=== PATIENT | female | born 1940 | race Caucasian/White ===

== ENCOUNTER → 2016-07-19 | Outpatient (CLI) | payer MEDICARE ==
--- NOTE | 2016-07-19 11:28 | US ---
EXAMINATION TYPE: US thyroid st tissue head/neck DATE OF EXAM: 07/19/2016 COMPARISON: July 27, 2015 CLINICAL HISTORY: E03.8 Other specified hypothyroidism. Follow up thyroid nodules GLAND SIZE: Right Lobe: 3.2 x 1.1 x 1.2 cm Overall Parenchyma: homogenous Left Lobe: 3.8 x 1.3 x 1.4 cm Overall Parenchyma: homogeneous Isthmus Thickness: 0.2 cm NODULES RIGHT: # of nodules measured on right: 2 1. 0.5 X 0.3 x 0.3 cm solid nodule at the upper pole with well-defined margins; . This nodule is w ider than tall and shows intranodular vascularity. Prior size: 0.5 x 0.3 x 0.3 cm 2. 1.3 X 0.7 x 1.0 cm hypoechoic solid nodule at the upper pole with well-defined margins; . This n odule is wider than tall and shows intranodular vascularity. Prior size: 1.4 x 0.8 x 0.9 cm LEFT: # of nodules measured on left: 2 1. 0.4 X 0.2 x 0.3 cm mixed nodule at the mid pole with well-defined margins; . This nodule is wid er than tall and shows no intranodular vascularity. Prior size: 0.3 x 0.2 x 0.2 cm 2. 0.3 X 0.2 x 0.2 cm mixed nodule at the mid pole with well-defined margins; . This nodule is wide r than tall and shows no intranodular vascularity. Prior size: 0.2 x 0.2 x 0.3 cm ISTHMUS: # of nodules measured in the isthmus: 0 Bilateral neck scanned, no evidence of lymphadenopathy. IMPRESSION: Multiple sub-centimeter nodules noted . 2 largest nodules measured bilaterally. Little to no change f rom prior exam
== END | disposition home or self-care (01) ==
LOC: RADUSWWP 09:34
PROVIDERS: ATTEND Internal Medicine Endocrinology, Diabetes & Metabolism
DX: E04.2 Nontoxic multinodular goiter (principal)
CPT/HCPCS: 76536

== ENCOUNTER → 2016-08-16 | Outpatient (CLI) | payer MEDICARE | END | disposition home or self-care (01) | LOC: LABWHC1 14:29 | PROVIDERS: ATTEND Internal Medicine Endocrinology, Diabetes & Metabolism | DX: E04.2 Nontoxic multinodular goiter (principal) | CPT/HCPCS: 36415; 84439; 84443 ==

== ENCOUNTER → 2017-03-19 | Outpatient (CLI) | payer MEDICARE ==
[2017-03-19 15:52] LABS: T4, Free (Free Thyroxine) 1.12 ng/dL (0.78-2.19)
== END | disposition home or self-care (01) ==
LOC: LABWHC1 14:39
PROVIDERS: ATTEND Internal Medicine Endocrinology, Diabetes & Metabolism
DX: E04.2 Nontoxic multinodular goiter (principal)
CPT/HCPCS: 36415; 84439; 84443

== ENCOUNTER → 2017-04-29 | Outpatient (CLI) | payer MEDICARE ==
--- NOTE | 2017-04-30 10:33 | US ---
EXAMINATION TYPE: US kidneys/renal and bladder DATE OF EXAM: 04/29/2017 COMPARISON: NONE CLINICAL HISTORY: R31.21 MICROSCOPIC HEMATURIA. Interstitial cystitis, microscopic hematuria EXAM MEASUREMENTS: Right Kidney: 9.4 x 4.0 x 4.2 cm Left Kidney: 8.9 x 4.4 x 4.3 cm Right Kidney: possible hypoechoic area mid, unable to rule out mass vs. normal parenchyma Left Kidney: no evidence of hydronephrosis Bladder: appears wnl as visualized Bilateral Jets seen: yes IMPRESSION: 1. There is a hypoechoic area within the right kidney. This is not a simple cyst. This could be abdoul l renal tissue. Underlying mass should be considered. Additional workup is recommended with contrast CT.
== END | disposition home or self-care (01) ==
LOC: RADUSWWP 15:17
PROVIDERS: ATTEND Internal Medicine
DX: Z13.21 Encounter for screening for nutritional disorder (principal)
CPT/HCPCS: 76770

== ENCOUNTER → 2017-05-20 | Outpatient (CLI) | payer MEDICARE ==
[2017-05-20 17:30] LABS: Blood Urea Nitrogen 18 mg/dL (7-17)
--- NOTE | 2017-05-21 08:36 | CT ---
EXAMINATION TYPE: CT urogram wo/w con DATE OF EXAM: 05/20/2017 COMPARISON: NONE INDICATION: Microscopic hematuria, right flank pain and history of interstitial cystitis. DLP: 791 mGycm, Automated exposure control for dose reduction was used. CONTRAST: 100 mL of Isovue M300. Study performed without Oral Contrast TECHNIQUE: Axial images were obtained from above the diaphragm to the pubic rami in the axial plane a t 5 mm thick sections. Reconstructed images are reviewed on the computer in the coronal plane. FINDINGS: Limited CT sections are obtained the lung bases. The lung bases are clear. CT ABDOMEN: Liver: Normal Spleen: Normal Pancreas: Normal Adrenal glands: The adrenal glands are normal. Gallbladder: Surgically absent Kidneys: No masses are evident. No hydronephrosis is present. Some mild right hydroureter is present proximally. This terminates within the upper abdomen. No obstructing etiology is identified. There i s a 0.6 cm cyst measuring 20 Hounsfield units on the mid posterior right kidney. Delayed images were obtained through the kidneys, which remain unremarkable. Three-D reconstructed images performed separately on the [employer] computer by the technologist are pres ented. Ureters follow a normal caliber course and contour to the urinary bladder. Urinary bladder fills norm ally without intraluminal or extramural defects. There is some minimal tortuosity of the ureters in t heir proximal portion. Aorta: Vascular calcification is within the aorta. Inferior vena cava: Normal. CT PELVIS: Loops of bowel within the abdomen and pelvis are normal. There are loops of bowel which are incom pletely distended or lack oral contrast limiting their evaluation. Appendix: Not identified. No suspicious tubular structures or inflammatory changes are evident. Urinary bladder: Normal as visualized. Contrast filled urinary bladder appears unremarkable. Genitourinary structures: Uterus is in the left hemipelvis. Adnexal regions are unremarkable. Osseous structures: Degenerative changes are within the scoliotic lumbar spine. Degenerative disc radames nges are within the lower thoracic spine as well as through the lumbar spine. Mild degenerative garcia es are at the bilateral hips. IMPRESSIONS: 1. No suspicious changes within the bilateral renal collecting system.
== END | disposition home or self-care (01) ==
LOC: RADCTMAIN 16:52
PROVIDERS: ATTEND Internal Medicine
DX: R93.41 Abnormal radiologic findings on diagnostic imaging of renal pelvis, ureter, or bladder (principal)
CPT/HCPCS: 82565; 84520; 74178; 36415; 74400; Q9967

== ENCOUNTER 2017-05-28 07:51 | Day surgery (SDC) | payer MEDICARE ==
[2017-05-23 15:24] VITALS: BMI 25.7
[~2017-05-28 07:51] MED LIST: LACTATED RINGERS 1,000 ML IV SCH
[2017-05-28 08:18] VITALS: RESP 18; TEMP 98.2
[2017-05-28] MEDS ORDERED: LACTATED RINGERS 1,000 ML IV ONE (08:18)
[2017-05-28] MEDS ORDERED: LIDOCAINE 1% 20 ML VIAL (10MG/ML) FOR IV START INTRADERMA ONE (08:18)
[2017-05-28] MEDS ORDERED: PROPOFOL 10 MG/ML 20 ML VIAL IV ONE (09:17)
[2017-05-28] MEDS ORDERED: LIDOCAINE 1% INJ 10MG/ML (20 ML MDV) ONE (09:17)
--- NOTE | 2017-05-28 09:21 | P.GSHP ---
History of Present Illness H&P Date: 05/28/17 Chief Complaint: Screen colonoscopy This is a 76-year-old female referred from Dr. Collado. Patient rents today for screening colonoscopy. She denies a significant GI complaints. Past Medical History Past Medical History: GERD/Reflux, Hypertension, Osteoarthritis (OA), Thyroid Disorder Additional Past Medical History / Comment(s): interstitial cystitis History of Any Multi-Drug Resistant Organisms: None Reported Past Surgical History: Appendectomy, Bladder Surgery, Cholecystectomy, Orthopedic Surgery, Tubal Ligation Additional Past Surgical History / Comment(s): maeve shoulder surg, knee arthroscopy, carpal tunnel sx both thumb joints replaced, bladder suspension, rectocele, pelvic floor surg, MAEVE cataract surg, left great toe spur removed, thyroid nodule biopsy, Dima Fundoplication (for GERDS) Past Anesthesia/Blood Transfusion Reactions: Motion Sickness, Postoperative Nausea & Vomiting (PONV) Smoking Status: Former smoker - Past Family History Brother(s) Family Medical History: Cancer Medications and Allergies Home Medications Medication Instructions Recorded Confirmed Type Estradiol/Norethindrone Acet 0.5 tab PO MOWEFR 04/29/14 05/23/17 History [Lopreeza 1 mg-0.5 mg Tablet] Levothyroxine Sodium [Synthroid] 50 mcg PO MOTUWETHFRSA 04/29/14 05/23/17 History Losartan Potassium [Cozaar] 100 mg PO DAILY 04/29/14 05/23/17 History Nortriptyline [Pamelor] 10 mg PO HS 04/29/14 05/23/17 History Pentosan Polysulfate Sodium 100 mg PO Q60D 04/29/14 05/23/17 History [Elmiron] Acetaminophen [Tylenol Arthritis] 650 mg PO DAILY PRN 05/23/17 05/23/17 History Ibuprofen [Motrin Ib] 200 mg PO BID PRN 05/23/17 05/23/17 History Allergies Allergy/AdvReac Type Severity Reaction Status Date / Time Iodinated Contrast- Oral and Allergy Severe Anaphylaxis Verified 05/23/17 09:48 IV Dye [Iodinated Contrast Media - IV Dye] bacitracin Allergy Rash/Hives Verified 05/23/17 09:48 [From Neosporin ([id number])] bacitracin zinc Allergy Rash/Hives Verified 05/23/17 09:48 [From Neosporin ([id number])] neomycin sulfate Allergy Rash/Hives Verified 05/23/17 09:48 [From Neosporin ([id number])] polymyxin B Allergy Rash/Hives Verified 05/23/17 09:48 [From Neosporin ([id number])] celecoxib [From Celebrex] AdvReac Confusion Verified 05/23/17 09:48 hydrocodone bitartrate AdvReac Confusion Verified 05/23/17 09:48 [From Vicodin] naproxen [From Naprosyn] AdvReac Confusion Verified 05/23/17 09:48 rofecoxib [From Vioxx] AdvReac Confusion Verified 05/23/17 09:48 Surgical - Exam Vital Signs Temp Pulse Resp BP Pulse Ox 98.2 F 77 18 132/84 98 05/28/17 08:17 05/28/17 08:17 05/28/17 08:17 05/28/17 08:17 05/28/17 08:17 - General well developed, no distress - Eyes PERRL - ENT normal pinna - Neck no masses - Respiratory normal expansion - Cardiovascular Rhythm: regular - Abdomen Abdomen: soft, non tender Assessment and Plan Assessment: We'll perform screening colonoscopy.
--- NOTE | 2017-05-28 09:44 | P.OP ---
Date of Procedure: 05/28/17 Preoperative Diagnosis: Screening colonoscopy Postoperative Diagnosis: Poor colonic prep Normal colonoscopy to right colon. Procedure(s) Performed: Colonoscopy Anesthesia: MAC Surgeon: Kan Sosa Pathology: none sent Condition: stable Disposition: PACU Description of Procedure: The patient's placed on the endoscopy table in the lateral position. She received IV sedation. Digital rectal exam performed which revealed no abnormalities. Flexible colonoscope was then placed patient anus and passed throughout the colon. The scope could not be advanced into the right colon secondary to a large amount of liquid stool. The colon prep was very poor. There was a large amount liquid stool throughout the entire colon. At this point scope withdrawn. The transverse colon appeared normal. The descending colon appeared normal. The sigmoid colon appeared normal. However due to the large amount of liquid stool the mucosa examination was performed. The scope was then brought back the rectum this appeared normal. Scope was withdrawn for patient.
[2017-05-28 10:05] VITALS: BP 144/85; PULSE 83
== END 2017-05-28 10:44 | disposition home or self-care (01) ==
LOC: ORWHC2ENDO 07:51
PROVIDERS: ATTEND Surgery
DX: Z12.11 Encounter for screening for malignant neoplasm of colon (principal); K21.9 Gastro-esophageal reflux disease without esophagitis; I10 Essential (primary) hypertension; M19.90 Unspecified osteoarthritis, unspecified site; E07.9 Disorder of thyroid, unspecified; N30.10 Interstitial cystitis (chronic) without hematuria; Z87.891 Personal history of nicotine dependence; Z79.890 Hormone replacement therapy; Z79.899 Other long term (current) drug therapy; Z88.5 Allergy status to narcotic agent; Z88.8 Allergy status to other drugs, medicaments and biological substances; Z88.6 Allergy status to analgesic agent; Z88.3 Allergy status to other anti-infective agents; Z91.041 Radiographic dye allergy status
CPT/HCPCS: J2001; J2704; G0121

== ENCOUNTER → 2017-06-11 | Outpatient (CLI) | payer MEDICARE ==
--- NOTE | 2017-06-12 12:05 | MM ---
Reason for exam: screening (asymptomatic). Last mammogram was performed 1 year and 4 months ago. History: Patient is postmenopausal. Physical Findings: A clinical breast exam by your physician is recommended on an annual basis and results should be correlated with mammographic findings. MG 3D Screening Mammo W/Cad Bilateral CC and MLO view(s) were taken. Prior study comparison: February 02, 2016, bilateral MG 3d screening mammo w/cad. February 16, 2014, mammogram, performed at [facility]. The breast tissue is heterogeneously dense. This may lower the sensitivity of mammography. Finding #1: There is a stable mass in the upper outer quadrant of the right breast back to 2013. Finding #2: There are typically benign calcifications in the right breast. No significant changes in finding since February 02, 2016 and February 16, 2014. ASSESSMENT: Benign, BI-RAD 2 RECOMMENDATION: Routine screening mammogram of both breasts in 1 year.
== END | disposition home or self-care (01) ==
LOC: RADMAMWWP 07:24
PROVIDERS: ATTEND Internal Medicine
DX: Z12.31 Encounter for screening mammogram for malignant neoplasm of breast (principal)
CPT/HCPCS: 77063; 77067

== ENCOUNTER → 2017-10-08 | Outpatient (CLI) | payer MEDICARE ==
--- NOTE | 2017-10-09 08:51 | BD ---
EXAMINATION TYPE: Axial Bone Density DATE OF EXAM: 10/08/2017 CLINICAL HISTORY: Disorder of bone density and structure, M [age] post[age] female Height: 58inches Weight: 122.1 FRAX RISK QUESTIONS: Alcohol (3 or more units per day): no Family History (Parent hip fracture): yes, father Glucocorticoids (More than 3mos): no (Ex: prednisone, prednisolone, methylprednisolone, dexamethasone, and hydrocortisone). History of Fracture in Adulthood: unsure Secondary Osteoporosis: 1. Type 1 Diabetes: no 2. Hyperthyroidism: no 3. Menopause before 45: no 4. Malnutrition: no 5. Chronic liver disease: no Rheumatoid Arthritis: no Current Tobacco Use: no RISK FACTORS HISTORY OF: Family History of Osteoporosis: yes Active: yes Diet low in dairy products/other sources of calcium: no Postmenopausal woman: yes Take estrogen and/or progesterone medications: yes, Norethin How long: since age 54 Lost more than 2 inches in height since high school: yes Frequent falls: no Poor Health: no Hyperparathyroidism: no Adrenal Insufficiency: no MEDICATIONS: Prednisone or other steroids: no Thyroid Medications: yes Which medication: Levothyroxine( generic) How Long: "many years" Osteoporosis Medications: no Additional Medications: blood pressure med, calcium & Vit D; Elmiron Additional History: thumb joint replacements because of arthritis; 3 shoulder surgeries EXAM MEASUREMENTS: Bone mineral densitometry was performed using the [employer] System. Bone mineral density as measured about the Lumbar spine is: ----- L1-L4(G/cm2): 1.113 T Score Values are as follows: ----- L2: 0.1 ----- L3: -0.4 ----- L4: -0.9 ----- L1-L4: -0.6 Bone mineral density has: Decreased -2.4% since study of: 10/06/2015 Bone mineral density about the R hip (g/cm2): 0.778 Bone mineral density about the L hip (g/cm2): 0.801 T Score values are as follows: -----R Neck: -1.9 -----L Neck: -1.7 -----R Total: -1.4 -----L Total: -1.3 Bone mineral density has: Increased 0.5% since study of: 10/06/2015 IMPRESSION: Osteopenia (T Score between -2.5 and -1). There is slightly increased risk of fracture and the patient may be considered for treatment. Re-Screen 2-5 years. There is a scoliosis. NOTE: T-SCORE=SD OF THE YOUNG ADULT MEAN.
== END ==
LOC: RADBDWWP 12:41
PROVIDERS: ATTEND Internal Medicine
DX: M85.80 Other specified disorders of bone density and structure, unspecified site (principal); M41.9 Scoliosis, unspecified
CPT/HCPCS: 77080

== ENCOUNTER → 2018-05-01 | Outpatient (CLI) | payer MEDICARE ==
--- NOTE | 2018-05-02 09:48 | US ---
EXAMINATION TYPE: US carotid duplex BILAT DATE OF EXAM: 05/01/2018 COMPARISON: NONE CLINICAL HISTORY: I34.0 Nonrheumatic mitral (valve) insufficiency. f/u EXAM MEASUREMENTS: RIGHT: Peak Systolic Velocity (PSV) cm/sec ----- Right CCA: 43.0 ----- Right ICA: 65.9 ----- Right ECA: 72.9 ICA/CCA ratio: 1.5 RIGHT: End Diastole cm/sec ----- Right CCA: 12.0 ----- Right ICA: 20.5 ----- Right ECA: 10.0 LEFT: Peak Systolic Velocity (PSV) cm/sec ----- Left CCA: 67.0 ----- Left ICA: 77.7 ----- Left ECA: 81.0 ICA/CCA ratio: 1.2 LEFT: End Diastole cm/sec ----- Left CCA: 19.2 ----- Left ICA: 34.0 ----- Left ECA: 10.1 VERTEBRALS (direction of flow): Right Vertebral: Antegrade Left Vertebral: Antegrade Rhythm: Normal Mild homogeneous plaque seen, no stenosis IMPRESSION: Mild degree of grayscale atheromatous plaquing with no sonographically evident hemodynam ically significant stenosis within either visualized carotid arterial system. Criteria for Assigning % of Stenosis / Diameter reduction (Estimation based on the indirect measurements of the internal carotid artery velocities (ICA PSV). 1. Normal (no stenosis)=ICA PSV < 125 cm/s: ratio < 2.0: ICA EDV<40 cm/s. 2. Less than 50% stenosis=ICA PSV < 125 cm/s: ratio < 2.0: ICA EDV<40 cm/s. 3. 50 to 69% stenosis=ICA PSV of 125 to 230 cm/s: ration 2.0 ? 4.0: ICA EDV 40-100 cm/s. 4. Greater than 70% stenosis to near occlusion= ICA PSV > 230 cm/s: ratio > 4.0: ICA EDV > 100 cm/s. 5. Near occlusion= ICA PSV velocities may be low or undetectable: variable ratio and ICA EDV. 6. Total occlusion=unable to detect flow.
--- NOTE | 2018-05-02 17:18 | ECHOF ---
Referral Reason:I34.0 Nonrheumatic mitral (valve) insufficiency MEASUREMENTS -------- HEIGHT: 152.4 cm WEIGHT: 56.2 kg BP: RVIDd: 2.1 cm (< 3.3) IVSd: 0.9 cm (0.6 - 1.1) LVIDd: 3.8 cm (3.9 - 5.3) LVPWd: 0.7 cm (0.6 - 1.1) IVSs: 1.1 cm LVIDs: 2.5 cm LVPWs: 1.2 cm LA Diam: 4.1 cm (2.7 - 3.8) LAESV Index (A-L): 28.86 ml/m Ao Diam: 2.6 cm (2.0 - 3.7) AV Cusp: 1.7 cm (1.5 - 2.6) LA Diam: 3.5 cm (2.7 - 3.8) MV EXCURSION: 21.258 mm (> 18.000) MV EF SLOPE: 79 mm/s (70 - 150) EPSS: 0.2 cm MV E Michael: 0.73 m/s MV DecT: 185 ms MV A Michael: 1.10 m/s MV E/A Ratio: 0.66 RAP: 5.00 mmHg RVSP: 29.40 mmHg FINDINGS -------- Sinus rhythm. This was a technically good study. LV size, wall thickness and systolic function are normal, with an EF greater than 55%. The left nirav tricular size is normal. The right ventricle is normal in size. Normal LA size by volume 22+/-6 ml/m2. The right atrial size is normal. The aortic valve is trileaflet, and appears structurally normal. No aortic stenosis or regurgitation. The mitral valve is normal. Mild mitral regurgitation is present. Mild tricuspid regurgitation present. There is no evidence of pulmonary hypertension. The right v entricular systolic pressure, as measured by Doppler, is 29.40mmHg. Trace/mild (physiologic) pulmonic regurgitation. The aortic root size is normal. There is no pericardial effusion. CONCLUSIONS -------- 1. Sinus rhythm. 2. This was a technically good study. 3. LV size, wall thickness and systolic function are normal, with an EF greater than 55%. 4. The left ventricular size is normal. 5. The right ventricle is normal in size. 6. Normal LA size by volume 22+/-6 ml/m2. 7. The aortic valve is trileaflet, and appears structurally normal. No aortic stenosis or regurgitati on. 8. Mild mitral regurgitation is present. 9. Mild tricuspid regurgitation present. 10. There is no evidence of pulmonary hypertension. 11. Trace/mild (physiologic) pulmonic regurgitation. 12. The aortic root size is normal. 13. There is no pericardial effusion. [employer]OR [employer]OT[employer] REPAIRER: Brenda Miller RDCS
== END | disposition home or self-care (01) ==
LOC: RADECHMAIN 15:46
PROVIDERS: ATTEND Internal Medicine
DX: I08.1 Rheumatic disorders of both mitral and tricuspid valves (principal); I65.23 Occlusion and stenosis of bilateral carotid arteries
CPT/HCPCS: 93306; 93880

== ENCOUNTER → 2018-06-12 | Outpatient (CLI) | payer MEDICARE ==
--- NOTE | 2018-06-13 12:24 | MM ---
Reason for exam: screening (asymptomatic). Last mammogram was performed 1 year ago. History: Patient is postmenopausal. Took hormonal contraceptives for 20 years. Taking estrogen for 10 years. Physical Findings: A clinical breast exam by your physician is recommended on an annual basis and results should be correlated with mammographic findings. MG 3D Screening Mammo W/Cad Bilateral CC and MLO view(s) were taken. Prior study comparison: June 11, 2017, bilateral MG 3d screening mammo w/cad. February 02, 2016, bilateral MG 3d screening mammo w/cad. The breast tissue is heterogeneously dense. This may lower the sensitivity of mammography. Stable nodule right breast. Increasing nodule upper outer left breast anterior third position. ASSESSMENT: Incomplete: need additional imaging evaluation, BI-RAD 0 RECOMMENDATION: Special view mammogram and ultrasound of the left breast. [facility] will attempt to contact patient to return for supplemental views and ultrasound.
== END ==
LOC: RADMAMWWP 09:58
PROVIDERS: ATTEND Internal Medicine
DX: Z12.31 Encounter for screening mammogram for malignant neoplasm of breast (principal); R92.8 Other abnormal and inconclusive findings on diagnostic imaging of breast
CPT/HCPCS: 77063; 77067

== ENCOUNTER → 2018-07-02 | Outpatient (CLI) | payer MEDICARE ==
--- NOTE | 2018-07-03 09:04 | MM ---
Reason for exam: additional evaluation requested from abnormal screening. Last mammogram was performed 1 month ago. History: Patient is postmenopausal. Took hormonal contraceptives for 20 years. Taking estrogen for 10 years. Physical Findings: Nurse did not find any significant physical abnormalities on exam. MG 3D Work Up W/Cad LT Spot compression CC, spot compression MLO, and LM view(s) were taken of the left breast. Prior study comparison: June 12, 2018, bilateral MG 3d screening mammo w/cad. June 11, 2017, bilateral MG 3d screening mammo w/cad. There are scattered fibroglandular densities. Central outer left anterior depth focal asymmetry improves on additional views and appears similar to exams back to 2014. Precautionary lateral ultrasound will be done. These results were verbally communicated with the patient and result sheet given to the patient on 07/02/18. ASSESSMENT: Incomplete: need additional imaging evaluation, BI-RAD 0 RECOMMENDATION: Ultrasound of the left breast. (lateral)
--- NOTE | 2018-07-03 09:05 | USB ---
Reason for exam: additional evaluation requested from abnormal screening. History: Patient is postmenopausal. Took hormonal contraceptives for 20 years. Taking estrogen for 10 years. US Breast Workup Limited LT Left limited breast ultrasound including focal area of concern, retroareolar and axilla demonstrates no cystic or solid lesion seen. No suspicious findings. These results were verbally communicated with the patient and result sheet given to the patient on 07/02/18. ASSESSMENT: Negative, BI-RAD 1 RECOMMENDATION: Return to routine screening mammogram schedule for both breasts.
== END | disposition home or self-care (01) ==
LOC: RADMAMWWP 14:48
PROVIDERS: ATTEND Internal Medicine
DX: R92.8 Other abnormal and inconclusive findings on diagnostic imaging of breast (principal)
CPT/HCPCS: 77065; 76642; G0279; 77061

== ENCOUNTER → 2019-05-06 | Outpatient (CLI) | payer MEDICARE ==
--- NOTE | 2019-05-06 09:28 | US ---
EXAMINATION TYPE: US duplex aorta DATE OF EXAM: 05/06/2019 COMPARISON: NONE CLINICAL HISTORY: R09.89 Bruit. plaque seen on xray at chiropractor EXAM MEASUREMENTS: Abdominal Aorta: Proximal: not seen due to bowel gas Mid: 1.8 x 2.0cm Distal: 1.6 x 1.8cm Bifurcation: Rt = 0.9cm Lt = 1.0cm IMPRESSION: Obscuration of the proximal abdominal aorta. No abdominal aortic aneurysm in the mid and distal abdominal aorta.
== END | disposition home or self-care (01) ==
LOC: RADUSWWP 08:58
PROVIDERS: ATTEND Internal Medicine
DX: R09.89 Other specified symptoms and signs involving the circulatory and respiratory systems (principal)
CPT/HCPCS: 93979

== ENCOUNTER → 2019-08-03 | Outpatient (CLI) | payer MEDICARE ==
--- NOTE | 2019-08-03 15:43 | XR ---
EXAMINATION TYPE: XR wrist complete RT DATE OF EXAM: 08/03/2019 CLINICAL HISTORY: Pain. TECHNIQUE: Frontal, lateral, scaphoid, and oblique images of the right wrist are obtained. COMPARISON: None FINDINGS: There is no acute fracture/dislocation evident in the right wrist. Radiocarpal joint space narrowing is present with subchondral cystic changes sclerosis greatest along the articulation with the lunate. Moderate narrowing and mild spurring along the ulnar base of the first metacarpal. Diffus e sclerosis of the lunate raising concern for underlying Kienb?ck disease. Lunate capitate relationsh ip fairly well maintained on attempted lateral view. IMPRESSION: As above.
== END | disposition home or self-care (01) ==
LOC: RAD 15:09
PROVIDERS: ATTEND Internal Medicine
DX: M25.831 Other specified joint disorders, right wrist (principal)

== ENCOUNTER → 2019-10-05 | Outpatient (CLI) | payer MEDICARE ==
--- NOTE | 2019-10-05 19:54 | BD ---
EXAMINATION TYPE: Axial Bone Density DATE OF EXAM: 10/05/2019 COMPARISON: NONE CLINICAL HISTORY: Postmenopausal screening Height: 4 FT 10 IN Weight: 121 FRAX RISK QUESTIONS: Alcohol (3 or more units per day): NO Family History (Parent hip fracture): YES Glucocorticoids (More than 3mos): NO (Ex: prednisone, prednisolone, methylprednisolone, dexamethasone, and hydrocortisone). History of Fracture in Adulthood: NO Secondary Osteoporosis: 1. Type 1 Diabetes: NO 2. Hyperthyroidism: NO 3. Menopause before 45: NO 4. Malnutrition: NO 5. Chronic liver disease: NO Rheumatoid Arthritis: NO Current Tobacco Use: NO RISK FACTORS HISTORY OF: Family History of Osteoporosis: NO Active: YES Postmenopausal woman: AGE 54 Take estrogen and/or progesterone medications: STILL TAKING HRT SINCE AGE 68 Lost more than 2 inches in height since high school: YES MEDICATIONS: Thyroid Medications: YES Which medication: LEVOTHYROXINE How Lon PLUS YEARS Additional Medications: HRT, LEVOTHYROXINE, NORETHINE, NORTRIPTLINE, ELMIRON, NEXIUM Additional History: RT CARPAL TUNNEL SURG AND MAEVE THUMB JOINT REPLACEMENTS EXAM MEASUREMENTS: Bone mineral densitometry was performed using the [employer] System. Bone mineral density as measured about the Lumbar spine is: ----- L1-L4(G/cm2): 1.137 T Score Values are as follows: ----- L2: 0.0 ----- L3: 0.0 ----- L4: -0.7 ----- L1-L4: -0.4 Bone mineral density has: INCREASED 1.9 % since study of: 2018 Bone mineral density about the R hip (g/cm2): 0.780 Bone mineral density about the L hip (g/cm2): 0.786 T Score values are as follows: -----R Neck: -1.9 -----L Neck: -1.8 -----R Total: -1.6 -----L Total: -1.7 Bone mineral density has: DECREASED -4.1 % since study of: 2018 IMPRESSION: Osteopenia (T Score between -2.5 and -1). There is slightly increased risk of fracture and the patient may be considered for treatment. Re-Screen 2-5 years. NOTE: T-SCORE=SD OF THE YOUNG ADULT MEAN.
--- NOTE | 2019-10-07 08:48 | MM ---
Reason for exam: screening (asymptomatic). Last mammogram was performed 1 year and 3 months ago. History: Patient is postmenopausal. Took hormonal contraceptives for 20 years. Taking estrogen for 11 years beginning at age 67. Physical Findings: A clinical breast exam by your physician is recommended on an annual basis and results should be correlated with mammographic findings. MG 3D Screening Mammo W/Cad Bilateral CC and MLO view(s) were taken. Prior study comparison: July 02, 2018, left breast MG 3d work up w/cad LT. June 12, 2018, bilateral MG 3d screening mammo w/cad. There are scattered fibroglandular densities. Benign appearing calcifications in the right breast. No significant changes when compared with prior studies. ASSESSMENT: Benign, BI-RAD 2 RECOMMENDATION: Routine screening mammogram of both breasts in 1 year.
== END | disposition home or self-care (01) ==
LOC: RADMAMWWP 13:49
PROVIDERS: ATTEND Internal Medicine
DX: Z12.31 Encounter for screening mammogram for malignant neoplasm of breast (principal); M85.80 Other specified disorders of bone density and structure, unspecified site; M81.0 Age-related osteoporosis without current pathological fracture
CPT/HCPCS: 77063; 77067; 77080

== ENCOUNTER → 2020-04-19 | Outpatient (CLI) | payer MEDICARE ==
--- NOTE | 2020-04-19 16:45 | US ---
EXAMINATION TYPE: US thyroid st tissue head/neck DATE OF EXAM: 04/19/2020 COMPARISON: US 2017 CLINICAL HISTORY: E04.1 Thyroid nodule. Thyroid nodules GLAND SIZE: Right Lobe: 4.0 x 1.6 x 1.0 cm Overall Parenchyma: homogenous Left Lobe: 4.2 x 1.1 x 1.1 cm Overall Parenchyma: homogeneous Isthmus Thickness: 0.2 cm NODULES RIGHT: # of nodules measured on right: 1 1. 1.6 X 0.9 x 1.1 cm lateral superior pole solid or almost completely solid, hypoechoic nodule, wh ich is wider than tall, with smooth margins, without echogenic foci. Prior size: 1.3 x 0.7 x 1.0 cm LEFT: # of nodules measured on left: 1 1. 0.5 X 0.3 x 0.3 cm medial inferior pole solid or almost completely solid, hypoechoic nodule, whi ch is wider than tall, with smooth margins, without echogenic foci. Prior size: 0.4 x 0.2 x 0.3 cm ISTHMUS: # of nodules measured in the isthmus: 0 Bilateral neck scanned, no evidence of lymphadenopathy. IMPRESSION: Moderately suspicious nodule right lobe thyroid. Fine-needle aspiration is recommended. TR Rads level 4: Moderately suspicious, fine-needle aspiration of greater than 1.5 cm.
== END | disposition home or self-care (01) ==
LOC: RADUSWWP 14:16
PROVIDERS: ATTEND Internal Medicine
DX: E04.1 Nontoxic single thyroid nodule (principal)
CPT/HCPCS: 76536

== ENCOUNTER 2020-06-03 12:50 | Day surgery (SDC) | payer MEDICARE ==
[2020-06-03 13:43] VITALS: RESP 16; TEMP 98.7
--- NOTE | 2020-06-03 14:18 | US ---
ULTRASOUND GUIDED FNA THYROID BIOPSY: CLINICAL HISTORY: Right thyroid nodule FINDINGS: The procedure was explained to the patient. The risks, complications, benefits and alternatives were discussed and any questions were answered. Informed consent was obtained. Patient was placed supin e on the ultrasound table and prepped and draped in the usual sterile fashion. Utilizing a 25 gauge needle, five passes were made into the requested right thyroid nodule. Patient was stable throughout the procedure. Pathology is pending. All elements of maximal barrier technique were utilized. IMPRESSION: 1. Successful ultrasound guided FNA thyroid biopsy.
[2020-06-03 14:36] VITALS: PULSE 78
[2020-06-03 14:37] VITALS: BP 121/78
== END 2020-06-03 14:35 | disposition home or self-care (01) ==
LOC: RADPROMAIN 12:50
PROVIDERS: ATTEND Internal Medicine
DX: E04.1 Nontoxic single thyroid nodule (principal); I10 Essential (primary) hypertension; E03.9 Hypothyroidism, unspecified; E78.2 Mixed hyperlipidemia; K21.9 Gastro-esophageal reflux disease without esophagitis; M81.0 Age-related osteoporosis without current pathological fracture; N30.90 Cystitis, unspecified without hematuria; Z98.890 Other specified postprocedural states; Z90.89 Acquired absence of other organs; Z98.51 Tubal ligation status; Z90.49 Acquired absence of other specified parts of digestive tract; Z96.692 Finger-joint replacement of left hand; Z82.5 Family history of asthma and other chronic lower respiratory diseases; Z82.49 Family history of ischemic heart disease and other diseases of the circulatory system; Z83.49 Family history of other endocrine, nutritional and metabolic diseases; Z82.69 Family history of other diseases of the musculoskeletal system and connective tissue; Z87.891 Personal history of nicotine dependence; N30.10 Interstitial cystitis (chronic) without hematuria; Z79.890 Hormone replacement therapy; Z79.899 Other long term (current) drug therapy; Z88.5 Allergy status to narcotic agent; Z88.6 Allergy status to analgesic agent; Z91.041 Radiographic dye allergy status
CPT/HCPCS: 10005; 88173; 88305

== ENCOUNTER → 2020-11-21 | Outpatient (CLI) | payer MEDICARE ==
--- NOTE | 2020-11-23 08:52 | MM ---
Reason for exam: screening (asymptomatic). Last mammogram was performed 1 year and 2 months ago. History: Patient is postmenopausal. Took hormonal contraceptives for 20 years. Taking estrogen for 11 years beginning at age 67. Physical Findings: A clinical breast exam by your physician is recommended on an annual basis and results should be correlated with mammographic findings. MG 3D Screening Mammo W/Cad Bilateral CC and MLO view(s) were taken. Prior study comparison: October 05, 2019, bilateral MG 3d screening mammo w/cad. July 02, 2018, left breast MG 3d work up w/cad LT. June 12, 2018, bilateral MG 3d screening mammo w/cad. June 11, 2017, bilateral MG 3d screening mammo w/cad. There are scattered fibroglandular densities. There is chronic nodularity in the right breast. No significant changes when compared with prior studies. ASSESSMENT: Benign, BI-RAD 2 RECOMMENDATION: Routine screening mammogram of both breasts in 1 year.
== END | disposition home or self-care (01) ==
LOC: RADMAMWWP 15:48
PROVIDERS: ATTEND Internal Medicine
DX: Z12.31 Encounter for screening mammogram for malignant neoplasm of breast (principal); Z78.0 Asymptomatic menopausal state
CPT/HCPCS: 77063; 77067

== ENCOUNTER 2020-12-12 10:35 | Day surgery (SDC) | payer MEDICARE ==
[2020-12-09 09:28] VITALS: BMI 25.4
[2020-12-12 11:07] VITALS: RESP 16; TEMP 98.6
[2020-12-12] MEDS ORDERED: LACTATED RINGERS 1,000 ML IV ONE (11:14)
[2020-12-12] MEDS ORDERED: LIDOCAINE 1% INJ 10MG/ML (20 ML MDV) ONE (11:41)
[2020-12-12] MEDS ORDERED: PROPOFOL 10 MG/ML 20 ML VIAL IV ONE (11:41)
--- NOTE | 2020-12-12 11:43 | P.GSHP ---
History of Present Illness H&P Date: 12/12/20 Chief Complaint: GERD, dysphagia This a 79-year-old female been safe for EGD. She had issues with GERD and dysphagia. Past Medical History Past Medical History: GERD/Reflux, Hypertension, Osteoarthritis (OA), Skin Disorder, Thyroid Disorder Additional Past Medical History / Comment(s): interstitial cystitis, can not eat any meat(diff swallowing), eczema, History of Any Multi-Drug Resistant Organisms: None Reported Past Surgical History: Appendectomy, Bladder Surgery, Cholecystectomy, Orthopedic Surgery, Tubal Ligation Additional Past Surgical History / Comment(s): bilateral shoulder surg., left knee arthroscopy, rt carpal tunnel surg., both thumb joints replaced, bladder suspension, rectocele, pelvic floor surg., jeanette cataract surg, thyroid nodule biopsy x3, Dima Fundoplication (for GERDS), left big toe surgery Past Anesthesia/Blood Transfusion Reactions: Motion Sickness, Postoperative Nausea & Vomiting (PONV) Smoking Status: Former smoker - Past Family History Brother(s) Family Medical History: Cancer Additional Family Medical History / Comment(s): prostate Medications and Allergies Home Medications Medication Instructions Recorded Confirmed Type Levothyroxine Sodium [Synthroid] 50 mcg PO MOTUWETHFRSA 04/29/14 12/12/20 History Losartan Potassium [Cozaar] 100 mg PO DAILY 04/29/14 12/09/20 History Nortriptyline [Pamelor] 10 mg PO DAILY 04/29/14 12/12/20 History Pentosan Polysulfate Sodium 300 mg .ROUTE Q90D 04/29/14 12/12/20 History [Elmiron] Ibuprofen [Motrin Ib] 200 mg PO DAILY PRN 05/23/17 12/12/20 History Esomeprazole Magnesium [NexIUM] 40 mg PO DAILY 05/05/20 12/12/20 History Norethine Drew 1.5 mg PO MOWEFR 12/09/20 12/09/20 History Allergies Allergy/AdvReac Type Severity Reaction Status Date / Time Iodinated Contrast Media Allergy Severe Anaphylaxis Verified 12/12/20 11:00 [Iodinated Contrast Media - IV Dye] bacitracin Allergy Rash/Hives Verified 12/12/20 11:00 [From Neosporin ([id number])] bacitracin zinc Allergy Rash/Hives Verified 12/12/20 11:00 [From Neosporin (oeb-dex-[id number])] neomycin sulfate Allergy Rash/Hives Verified 12/12/20 11:00 [From Neosporin (utz-myt-chyak)] polymyxin B Allergy Rash/Hives Verified 12/12/20 11:00 [From Neosporin (bnu-ssu-oeyza)] celecoxib [From Celebrex] AdvReac Confusion Verified 12/12/20 11:00 hydrocodone bitartrate AdvReac Confusion Verified 12/12/20 11:00 [From Vicodin] naproxen [From Naprosyn] AdvReac Confusion Verified 12/12/20 11:00 rofecoxib [From Vioxx] AdvReac Confusion Verified 12/12/20 11:00 Surgical - Exam Vital Signs Temp Pulse Resp BP Pulse Ox 98.6 F 96 16 150/86 100 12/12/20 11:05 12/12/20 11:05 12/12/20 11:05 12/12/20 11:05 12/12/20 11:05 - General well developed, well nourished, no distress - Eyes PERRL - ENT normal pinna - Neck no masses, no bruits - Respiratory normal expansion - Cardiovascular Rhythm: regular - Abdomen Abdomen: soft, non tender Assessment and Plan Assessment: GERD, dysphagia. We'll perform EGD.
--- NOTE | 2020-12-12 11:53 | P.OP ---
Date of Procedure: 12/12/20 Preoperative Diagnosis: GERD Postoperative Diagnosis: Antral gastritis Recurrent hiatal hernia Esophagitis Procedure(s) Performed: EGD Anesthesia: MAC Surgeon: Kan Sosa Pathology: other (Antrum, esophagus) Condition: stable Disposition: PACU Description of Procedure: Patient's placed on the endoscopy table in the lateral position. She received IV sedation. The gastroscope was oropharynx passed in the esophagus and stomach. Scope was placed through the pylorus. The first and second portion of duodenum appeared normal. Scope was brought back into the antrum. This mildly inflamed. A biopsies performed. The scope was unretroflexed and remainder of the stomach appeared normal. There was a small recurrent hiatal hernia. The GE junction was at 38 7 is. The distal esophagus appeared mildly inflamed a biopsies performed. The proximal esophagus. Normal the scope was withdrawn for patient.
[2020-12-12 12:06] VITALS: BP 123/77; PULSE 81
== END 2020-12-12 13:07 | disposition home or self-care (01) ==
LOC: ORWHC2ENDO 10:35
PROVIDERS: ATTEND Surgery
DX: K29.50 Unspecified chronic gastritis without bleeding (principal); K44.9 Diaphragmatic hernia without obstruction or gangrene; K20.0 Eosinophilic esophagitis; R13.10 Dysphagia, unspecified; I10 Essential (primary) hypertension; M19.90 Unspecified osteoarthritis, unspecified site; E07.9 Disorder of thyroid, unspecified; L30.9 Dermatitis, unspecified; N30.10 Interstitial cystitis (chronic) without hematuria; Z90.49 Acquired absence of other specified parts of digestive tract; Z98.890 Other specified postprocedural states; Z96.698 Presence of other orthopedic joint implants; Z98.42 Cataract extraction status, left eye; Z98.41 Cataract extraction status, right eye; Z87.891 Personal history of nicotine dependence; Z80.42 Family history of malignant neoplasm of prostate; Z98.51 Tubal ligation status; Z79.890 Hormone replacement therapy; Z79.899 Other long term (current) drug therapy; Z88.8 Allergy status to other drugs, medicaments and biological substances; Z88.3 Allergy status to other anti-infective agents; Z91.041 Radiographic dye allergy status
CPT/HCPCS: 88305; 43239; J2001; J2704

== ENCOUNTER → 2020-12-30 | Outpatient (CLI) | payer MEDICARE ==
--- NOTE | 2020-12-30 12:41 | FL ---
EXAMINATION TYPE: FL UGI air w esophagus DATE OF EXAM: 12/30/2020 COMPARISON: 06/15/2014 HISTORY: 80-year-old female K21.0 GERD, K27.9 peptic ulcer. TECHNIQUE: A double contrast UGI and esophagram study is performed. A total of 2 minutes 12 seconds of fluoroscopic time was utilized during procedure and 45 images obtained. FINDINGS: A few episodes of transient penetration are noted. Otherwise, the swallowing mechanism is normal and hypopharyngeal anatomy is preserved. The esophagus shows course and caliber. Moderate tertiary peristaltic contractions are demonstrated. There is some delay and in clearance of contrast when the patient is prone or supine. No mucosal abnormality is seen. No abnormal filling defect identified. There is a small to moderate-sized hiatal hernia. Some of the patient's previous Jamie fundoplicatio n is noted below the diaphragm. We did not visualize any reflux into the hiatal hernia. However, mult iple episodes of gastroesophageal reflux were seen. There is relative annular narrowing along the mid body of the stomach without any mucosal irregularit y identified. There appear to be diverticula of the second and third portions of the duodenum. IMPRESSION: 1. Small to moderate-sized recurrent hiatal hernia above a partially intact Jamie wrap. 2. Recurrent episodes of gastroesophageal reflux and moderate esophageal dysmotility. 3. We were unable to induce contrast reflux into the hernia sac itself. 4. Annular narrowing along the mid body of the stomach but without any discrete mucosal abnormality s een. Findings could represent spasm. Correlate with findings on direct visualization.
== END | disposition home or self-care (01) ==
LOC: RADFLMAIN 11:07
PROVIDERS: ATTEND Surgery
DX: K21.9 Gastro-esophageal reflux disease without esophagitis (principal); K22.4 Dyskinesia of esophagus; K44.9 Diaphragmatic hernia without obstruction or gangrene
CPT/HCPCS: 74246

== ENCOUNTER → 2021-05-05 | Outpatient (CLI) | payer MEDICARE ==
--- NOTE | 2021-05-05 13:51 | XR ---
EXAMINATION TYPE: XR Hip Limited LT DATE OF EXAM: 05/05/2021 CLINICAL HISTORY: M25.552 S46.212A TECHNIQUE: AP and frogleg views of the left hip are obtained. COMPARISON: None. FINDINGS: There is no acute fracture/dislocation evident in the left hip. The joint space in the le ft hip appears moderately narrowed. The overlying soft tissue appears unremarkable. IMPRESSION: There is no acute fracture or dislocation in the left hip.
--- NOTE | 2021-05-05 14:02 | XR ---
EXAMINATION TYPE: XR shoulder complete LT DATE OF EXAM: 05/05/2021 CLINICAL HISTORY: pain COMPARISON: NONE TECHNIQUE: Three views of the left shoulder are obtained. FINDINGS: There is no acute fracture/dislocation evident. The acromioclavicular and glenohumeral juany int spaces appear within normal limits. The visualized ribs are intact and unremarkable. IMPRESSION: 1. There is no acute fracture or dislocation. ICD 10 NO FRACTURE, INITIAL EVALUATION
== END | disposition home or self-care (01) ==
LOC: RADXRMAIN 13:03
PROVIDERS: ATTEND Internal Medicine
DX: M25.552 Pain in left hip (principal); M25.512 Pain in left shoulder
CPT/HCPCS: 73501

== ENCOUNTER → 2022-02-13 | Outpatient (CLI) | payer MEDICARE ==
--- NOTE | 2022-02-14 11:02 | MM ---
Reason for Exam: Screening (asymptomatic). Last mammogram was performed 1 year(s) and 2 month(s) ago. Patient History: Menarche at age 18. First Full-Term at age 20. Postmenopausal. Currently using Estrogen, beginning at age 67 for 11 years. Patient used Hormonal Contraceptives for 20 years. Risk Values: Vera 5 year model risk: 1.1%. NCI Lifetime model risk: 1.9%. Prior Study Comparison: 07/02/2018 Left Diagnostic Mammogram, [facility]. 10/05/2019 Bilateral Screening Mammogram, [facility]. 11/21/2020 Bilateral Screening Mammogram, [facility]. Tissue Density: There are scattered fibroglandular densities. Findings: Analyzed By CAD. Benign coarse calcifications within the right breast. There is a stable nodule in the outer right breast. Benign vascular calcifications present bilaterally. No significant interval changes are evident. No suspicious groups of microcalcifications, spiculated or lobular masses, architectural distortion or other secondary signs of malignancy are mammographically apparent. Overall Assessment: Benign, BI-RAD 2 Management: Screening Mammogram of both breasts in 1 year. A negative mammogram report should not preclude additional follow up of suspicious palpable abnormalities. Patient should continue monthly self breast exam. A clinical breast exam by your physician is recommended on an annual basis and results should be correlated with mammographic findings. Electronically signed and approved by: Jed Darling D.O. Radiologis
== END | disposition home or self-care (01) ==
LOC: RADMAMWWP 13:37
PROVIDERS: ATTEND Internal Medicine
DX: Z12.31 Encounter for screening mammogram for malignant neoplasm of breast (principal); Z78.0 Asymptomatic menopausal state
CPT/HCPCS: 77063; 77067

== ENCOUNTER → 2022-10-05 | Outpatient (CLI) | payer MEDICARE ==
--- NOTE | 2022-10-05 15:13 | BD ---
EXAMINATION TYPE: Axial Bone Density DATE OF EXAM: 10/05/2022 CLINICAL HISTORY: 81 years old Female. ICD-10 CODE: M85.851 osteopenia R hip Height: 57.5in Weight: 122lb FRAX RISK QUESTIONS: Family History (Parent hip fracture): yes Secondary Osteoporosis: RISK FACTORS HISTORY OF: Surgery to Spine/Hip(right/left)/Wrist (right/left): jeanette wrist surgery When: Family History of Osteoporosis: yes Active: yes Postmenopausal woman: yes Take estrogen and/or progesterone medications: yes How long: since the age of 68 Lost more than 2 inches in height since high school: yes MEDICATIONS: Thyroid Medications: Which medication: Levothyroxine How Lon + years Additional Medications: bp meds, cholesterol med, reflux, calcium with vitamin d Additional History: EXAM MEASUREMENTS: Bone mineral densitometry was performed using the [employer] System. Bone mineral density as measured about the Lumbar spine is: ----- L1-L4(G/cm2): 1.077 T Score Values are as follows: ----- L1: -0.9 ----- L2: -0.6 ----- L3: -0.9 ----- L4: -1.2 ----- L1-L4: -0.9 Z Score Values are as follows: ----- L1: 1.2 ----- L2: 1.5 ----- L3: 1.3 ----- L4: 1.0 ----- L1-L4: 1.3 Bone mineral density has: Decreased -5.3% since study of: 10-05-2019 Bone mineral density about the R hip (g/cm2): 0.811 Bone mineral density about the L hip (g/cm2): 0.795 T Score values are as follows: -----R Neck: -1.9 -----L Neck: -1.8 -----R Total: -1.6 -----L Total: -1.7 Z Score values are as follows: -----R Neck: 0.4 -----L Neck: 0.5 -----R Total: 0.7 -----L Total: 0.5 Bone mineral density has: Increased 0.1% since study of: 10-05-2019 FRAX%s: The graph provided illustrates a 28.2% chance for a major osteoporotic fx and a 17.7% chance for the hips probability for fx in 10 years time. IMPRESSION: Osteopenia (T Score between -2.5 and -1). There is slightly increased risk of fracture and the patient may be considered for treatment. Re-Screen 2-5 years. NOTE: T-SCORE=SD OF THE YOUNG ADULT MEAN.
== END | disposition home or self-care (01) ==
LOC: RADBDWWP 10:42
PROVIDERS: ATTEND Internal Medicine
DX: M85.89 Other specified disorders of bone density and structure, multiple sites (principal); Z78.0 Asymptomatic menopausal state
CPT/HCPCS: 77080

== ENCOUNTER → 2022-10-30 | Outpatient (CLI) | payer MEDICARE ==
--- NOTE | 2022-10-30 13:27 | CA ---
Exercise Nuclear Stress Test Report Name: Miracle Brian Exam Date: 10/30/2022 11:09 Exam Location: [place] Stress Ht (in): 60 Wt (lb): 120 BSA: 1.50 Ordering Phys: Aquiles Collado MD Referring Phys: Heaven, Technologist: PANKAJ,, Age: 81 Gender: F : 1940 Procedure CPT: Indications: I25.10 ATHSCL HEART DISEASE OF [place] CORONARY ICD-10 Codes: Patient History: Abnormal CT and shortness of breath Medications: Meds past 24 hrs: Pretest Chest Pain: STRESS TEST Protocol Exercise Duration (min:sec): 03:[address] Depressions (mm): Angina Score: Wisdom Score: Resting HR (bpm): 84 Peak HR (bpm): 131 Resting BP (mmHg): 156 / 90 Peak BP (mmHg): / 86 MPHR: 141 Target HR: 120 % MPHR: 93 METS: 4.7 Total Dose: Peak Dose: Atropine: Double Product: BP Response: Stress Termination: TARGET HR REACHED/MAX EXERTION Stress Symptoms: NO SYMPTOMS Stress Summary: ECG ANALYSIS Resting ECG: Sinus rhythm. Left bundle branch block. No arrhythmias. Stress ECG: No ECG evidence of ischemia with exercise. CONCLUSIONS 1. Decrease exercise tolerance 2. Nondiagnostic electrocardiographic stress testing 3. Nuclear images will be reported separately. Dr. Keyla Berrios MD (Electronically Signed) Final Date: 30 October 2022 13:26
--- NOTE | 2022-10-30 15:30 | NM ---
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 The patient exercised using a CIS[employer] protocol and 1 minute prior to peak e xercise was injected with 23.6 mCi Tc 99m Sestamibi - Stress images obtained 45 minutes post injectio n. FINDINGS: Targeted heart rate was achieved during performance of the study. Review of stress and rest SPECT jasvir ges demonstrates there are fixed perfusion defects involving the anterior wall and anteroapical and c ardiac septum. No definite stress-induced ischemia is seen. Gated analysis shows normal wall motion w ith an estimated left ventricular ejection fraction of 62 %. IMPRESSION: Defect involving the anterior wall, anteroapical and septal fernando.
== END | disposition home or self-care (01) ==
LOC: RADNMMAIN 09:07
PROVIDERS: ATTEND Internal Medicine
DX: I25.10 Atherosclerotic heart disease of native coronary artery without angina pectoris (principal)
CPT/HCPCS: 93017; 78452; A9500

== ENCOUNTER → 2022-11-29 | Outpatient (CLI) | payer MEDICARE ==
--- NOTE | 2022-11-29 20:12 | CA ---
Transthoracic Echo Report Name: Miracle Brian Age: 81 Gender: F : 1940 Exam Date: 11/29/2022 15:10 Exam Location: [place] Echo Ht (in): 59 Wt (lb): 118 Ordering Physician: Aquiles Collado MD Attending/Referring Phys: Offender Employment Specialist Fátima Ellis RDCS Procedure CPT: Indications: I25.10 ATHSCL HEART DISEASE OF [place] CORONARY ART Cardiac Hx: Technical Quality: Fair Contrast 1: Total Dose (mL): Contrast 2: Total Dose (mL): MEASUREMENTS (Male / Female) Normal Values 2D ECHO LV Diastolic Diameter PLAX 2.8 cm 4.2 - 5.9 / 3.9 - 5.3 cm LV Systolic Diameter PLAX 1.8 cm IVS Diastolic Thickness 1.4 cm 0.6 - 1.0 / 0.6 - 0.9 cm LVPW Diastolic Thickness 1.2 cm 0.6 - 1.0 / 0.6 - 0.9 cm LV Relative Wall Thickness 0.9 RV Internal Dim ED PLAX 2.5 cm M-MODE Aortic Root Diameter MM 2.7 cm LA Systolic Diameter MM 1.6 cm LA Ao Ratio MM 0.6 AV Cusp Separation MM 3.7 cm DOPPLER AV Peak Velocity 155.1 cm/s AV Peak Gradient 9.6 mmHg AV Mean Velocity 113.9 cm/s AV Mean Gradient 5.7 mmHg AV Velocity Time Integral 27.8 cm AI Peak Velocity 423.2 cm/s AI Peak Gradient 71.6 mmHg AI Pressure Half Time 398.8 ms LVOT Peak Velocity 115.3 cm/s LVOT Peak Gradient 5.3 mmHg LVOT Velocity Time Integral 25.6 cm Mitral E Point Velocity 84.7 cm/s Mitral A Point Velocity 134.8 cm/s Mitral E to A Ratio 0.6 MV Deceleration Time 226.1 ms MV E' Velocity 3.8 cm/s Mitral E to MV E' Ratio 22.1 TR Peak Velocity 254.2 cm/s TR Peak Gradient 25.8 mmHg Right Ventricular Systolic Press 35.9 mmHg FINDINGS Left Ventricle Moderately increased left ventricular wall thickness. Left ventricular cavity size normal. Normal left ventricular systolic function. Left ventricular ejection fraction is estimated at 55 %. Right Ventricle Normal right ventricular size and function. Mild pulmonary hypertension. Right Atrium Normal right atrial size. Left Atrium Normal left atrial size. Mitral Valve Structurally normal mitral valve. Mitral valve thickened. Mild mitral annular calcification. Trace to mild mitral regurgitation. Aortic Valve Trileaflet aortic valve. No aortic stenosis. Mild aortic regurgitation. Tricuspid Valve Structurally normal tricuspid valve. Mild tricuspid regurgitation. Pulmonic Valve Trace pulmonic regurgitation. Pericardium No pericardial effusion. Aorta Normal size aortic root and proximal ascending aorta. CONCLUSIONS Increase LV mass, septal bulge and mild anteroseptal hypokinesis Overall LV systolic function is preserved Previewed by: Dr. Pop Whiteside MD (Electronically Signed) Final Date: 29 November 2022 20:11
== END | disposition home or self-care (01) ==
LOC: RADECHMAIN 14:47
PROVIDERS: ATTEND Internal Medicine
DX: I25.10 Atherosclerotic heart disease of native coronary artery without angina pectoris (principal)
CPT/HCPCS: 93306

== ENCOUNTER → 2023-03-20 | Outpatient (CLI) | payer MEDICARE ==
--- NOTE | 2023-03-21 09:27 | CT ---
EXAMINATION TYPE: CT abdomen pelvis wo con DATE OF EXAM: 03/20/2023 COMPARISON: 05/20/2012 INDICATION: Frequent UTI's. DLP: 328.5 mGycm, Automated exposure control for dose reduction was used. CONTRAST: 0 mL of Isovue 300. Study performed without Oral Contrast TECHNIQUE: Axial images were obtained from above the diaphragm to the pubic rami in the axial plane a t 5 mm thick sections. Reconstructed images are reviewed on the computer in the coronal plane. FINDINGS: Limited CT sections are obtained the lung bases. The lung bases are clear. A small hiatal hernia is present. CT ABDOMEN: Liver: Normal Spleen: Normal Pancreas: Normal Adrenal glands: The adrenal glands are normal. Gallbladder: Surgically absent Kidneys: No masses are evident. No hydronephrosis is present. No cysts are present. No renal stone s are evident. Aorta: Vascular calcification is within the aorta. Inferior vena cava: Normal. CT PELVIS: Fecal debris is within the colon. The study is performed without oral contrast limiting bowel evaluat ion. Appendix: Not identified. No dilated tubular structure or inflammatory changes evident. Urinary bladder: Normal. Genitourinary structures: Uterus is normal in the left hemipelvis. Adnexa appear unremarkable Osseous structures: No suspicious lytic or sclerotic lesions. Facet degenerative changes are within l umbar spine IMPRESSION: 1. Some mild fecal debris is within the colon without evidence of obstruction. 2. Hiatal hernia
== END | disposition home or self-care (01) ==
LOC: RADCTMAIN 13:05
PROVIDERS: ATTEND Internal Medicine
DX: K44.9 Diaphragmatic hernia without obstruction or gangrene (principal); K56.41 Fecal impaction; N39.0 Urinary tract infection, site not specified; Z90.49 Acquired absence of other specified parts of digestive tract
CPT/HCPCS: 74176

== ENCOUNTER → 2023-04-08 | Outpatient (CLI) | payer MEDICARE ==
--- NOTE | 2023-04-09 09:17 | MM ---
Reason for Exam: Screening (asymptomatic). Last mammogram was performed 1 year(s) and 2 month(s) ago. Patient History: Menarche at age 18. First Full-Term at age 20. Postmenopausal. Patient has history of breast feeding. Currently using Estrogen, starting at age 67. Patient used Hormonal Contraceptives for 20 years. Risk Values: Vera 5 year model risk: 1.1%. NCI Lifetime model risk: 1.7%. Prior Study Comparison: 06/11/2017 Bilateral Screening Mammogram, [facility]. 06/12/2018 Bilateral Screening Mammogram, [facility]. 07/02/2018 Left Diagnostic Mammogram, [facility]. 10/05/2019 Bilateral Screening Mammogram, [facility]. 11/21/2020 Bilateral Screening Mammogram, [facility]. 02/13/2022 Bilateral MG 3D screening mammo w/cad, [facility]. Tissue Density: The breast tissue is heterogeneously dense. This may lower the sensitivity of mammography. Findings: Analyzed By CAD. Stable chronic nodularity right breast. Benign-appearing calcifications noted. There is no suspicious group of microcalcifications or new suspicious mass in either breast. Overall Assessment: Benign, BI-RAD 2 Management: Screening Mammogram of both breasts in 1 year. . Patient should continue monthly self-breast exams. A clinical breast exam by your physician is recommended on an annual basis. This exam should not preclude additional follow-up of suspicious palpable abnormalities. Note on Vera scores and lifetime risk: 1. A Vera score greater than 3% is considered moderate risk. If this is the case, consider specialist referral to assess eligibility for a risk reducing agent. 2. If overall lifetime risk for the development of breast cancer is 20% or higher, the patient may qualify for future screening with alternating mammogram and breast MRI. Electronically signed and approved by: Willy Johns M.D. Radiologis
== END | disposition home or self-care (01) ==
LOC: RADMAMWWP 13:31
PROVIDERS: ATTEND Internal Medicine
DX: Z12.31 Encounter for screening mammogram for malignant neoplasm of breast (principal); Z78.0 Asymptomatic menopausal state
CPT/HCPCS: 77063; 77067

== ENCOUNTER → 2023-07-12 | Outpatient (CLI) | payer MEDICARE ==
[2023-07-12 15:03] LABS: Basophils # (A) 0.06 X 10*3/uL (0.00-0.10); Basophils % (A) 0.9 %; Eosinophils # (A) 0.18 X 10*3/uL (0.04-0.35); Eosinophils % (A) 2.8 %; HGB 12.1 g/dL (12.0-15.0); Lymphocytes # (A) 1.56 X 10*3/uL (0.90-5.00); Lymphocytes % (A) 24.4 %; MCH 27.3 pg (27.0-32.0); Mean Platelet Volume 10.9 FL (9.5-12.2); Monocytes # (A) 0.58 X 10*3/uL (0.20-1.00); Monocytes % (A) 9.1 %; NRBC Per 100 WBC 0 X 10*3/uL (0.00-0.01); Neutrophils % (A) 62.5 %; Platelet Count 254 X 10*3/uL (140-440); RBC 4.43 X 10*6/uL (4.10-5.20); RDW 14.7 % (11.5-14.5)
[2023-07-12 15:31] LABS: ALT 21 U/L (8-44); AST 25 U/L (13-35); Albumin 4.4 g/dL (3.8-4.9); Alkaline Phosphatase 61 U/L (41-126); BUN/Creat Ratio 23.17 Ratio (12.00-20.00); Blood Urea Nitrogen 13.9 mg/dL (9.0-27.0); Calcium 9.9 mg/dL (8.7-10.3); Carbon Dioxide 24.8 mmol/L (21.6-31.8); Chloride 109 mmol/L (96-109); Chol/HDL Ratio 2.04 Ratio; Globulin 2.2 g/dL (1.6-3.3); Glucose 85 mg/dL (70-110); LDL Cholesterol,Calculated 55.9 mg/dL (0.0-131.0); Potassium 3.9 mmol/L (3.5-5.5); Sodium 145 mmol/L (135-145); Total Bilirubin 0.5 mg/dL (0.3-1.2); Total Protein 6.6 g/dL (6.2-8.2); Uric Acid 2.6 mg/dL (2.9-7.7); VLDL Calculation 11.52 mg/dL (5.00-40.00)
[2023-07-12 16:00] LABS: Appearance,Urine Clear (Clear); Bilirubin,Urine Negative (Negative); Blood,Urine Trace (Negative); Color,Urine Yellow (Yellow); Ketones,Urine Negative (Negative); Nitrite,Urine Negative (Negative); PH, Urine 6.5; Specific Gravity,Urine 1.006 (1.001-1.030); Urobilinogen,Urine 0.2 E.U./DL
[2023-07-12 16:06] LABS: Bacteria,Urine None Seen (None Seen)
== END | disposition home or self-care (01) ==
LOC: LABWHC1 09:11
PROVIDERS: ATTEND Internal Medicine
DX: I10 Essential (primary) hypertension (principal); E78.2 Mixed hyperlipidemia
CPT/HCPCS: 36415; 80053; 80061; 81001; 82306; 83735; 84443; 84550; 85025

== ENCOUNTER 2023-07-18 06:39 | Day surgery (SDC) | payer MEDICARE ==
[~2023-07-18 06:39] MED LIST changes: +ALPRAZolam 0.25 MG TAB PO PRN; +ALPRAZolam 0.5 MG TAB PO PRN; +ASPIRIN 325 MG TAB PO STA; +ATORVASTATIN 80 MG TAB PO STA; +HEPARIN SODIUM,PORCINE (1 ML) 2,500 UNIT in SODIUM CHLORIDE 0.9% 250 ML IRRIGATION PRN; +HEPARIN SODIUM,PORCINE 10,000 UNIT in SODIUM CHLORIDE 0.9% 1,000 ML IRRIGATION PRN; -LACTATED RINGERS 1,000 ML IV SCH; +NITROGLYCERIN SL TABS 0.4 MG TAB SUBLINGUAL PRN
[2023-07-18] MEDS: ASPIRIN 81 MG ONE (07:09)
[2023-07-18] MEDS: methylPREDNISolone SOD SUCCI 125 MG/2 ML VIAL ONE (07:09)
[2023-07-18] MEDS: SODIUM CHLORIDE 0.9% 1,000 ML in EMPTY BAG 1 BAG IV SCH (07:10)
[2023-07-18] MEDS: IV FLUID CONTINUATION 1,000 ML IV ONE (07:15)
[2023-07-18 07:19] VITALS: RESP 18; TEMP 98.4
[2023-07-18] MEDS ORDERED: LIDOCAINE 1% INJ 10MG/ML (20 ML MDV) ONE (07:22)
[2023-07-18] MEDS ORDERED: fentaNYL (PF) 50 MCG/ML 2 ML AMP ONE (07:24)
[2023-07-18] MEDS: fentaNYL (PF) 50 MCG/ML 2 ML AMP IVP ONE (07:33)
[2023-07-18] MEDS: LIDOCAINE 1% INJ 10MG/ML (20 ML MDV) SQ ONE (07:36)
[2023-07-18] MEDS: HEPARIN SODIUM 1,000 UN/ML (10ML VL) IVP ONE ×2 (07:40)
[2023-07-18] MEDS: VERAPAMIL SYRINGE (5 MG/10 ML) INTRAARTER ONE (07:40)
[2023-07-18] MEDS: MIDAZOLAM 2 MG/2 ML VIAL IVP ONE (07:45)
[2023-07-18] MEDS ORDERED: CLOPIDOGREL 75 MG TAB ONE (07:48)
[2023-07-18] MEDS: CLOPIDOGREL 75 MG TAB PO ONE (07:49)
[2023-07-18] MEDS: IOPAMIDOL-370 100ML BTL INJ ONE ×3 (08:17→08:23)
[2023-07-18] MEDS ORDERED: MAG HYDROX/AL HYDROX/SIMETH 30 ML CUP PO PRN (08:58)
[2023-07-18] MEDS ORDERED: NITROGLYCERIN SL TABS 0.4 MG TAB SUBLINGUAL PRN (08:58)
[2023-07-18] MEDS ORDERED: ATROPINE SULFATE 0.1 MG/ML 10ML SYRINGE IV PRN (08:58)
[2023-07-18] MEDS ORDERED: RX INFO: IV CONTRAST WAS GIVEN 1 EACH MISC MISCELLANE PRN (08:58)
[2023-07-18] MEDS ORDERED: ZOLPIDEM 5 MG TAB PO PRN (08:58)
[2023-07-18] MEDS ORDERED: SODIUM CHLORIDE 0.9% 1,000 ML in EMPTY BAG 1 BAG IV SCH (09:00)
[2023-07-18] MEDS ORDERED: LEVOTHYROXINE 50 MCG TAB PO SCH (09:00)
[2023-07-18] MEDS ORDERED: LOSARTAN 50 MG TAB PO SCH (09:00)
[2023-07-18] MEDS ORDERED: NON FORMULARY DRUG (Pentosan Polysulfate Sodium [Elmiron] 100 MG Capsule) MISCELLANE SCH (09:00)
[2023-07-18] MEDS ORDERED: PANTOPRAZOLE 40 MG TABLET PO SCH (09:00)
--- NOTE | 2023-07-18 09:10 | P.CARDCATH ---
Date of Procedure: 07/18/23 Description of Procedure: Cardiac Catheterization: The patient is an 82-year-old female with known history of hypertension and hyperlipidemia who has been complaining of progressive dyspnea and had an abnormal MPI. Recommendations were made regarding cardiac catheterization, the risks and the complications were discussed with the patient who is in full understanding and agreement. Procedure Description: Patient was brought to laborer/grade check in fasting semi-sedated state after receiving Fentanyl and Benadryl achieiving moderate conscious sedated state. Using Xylocaine Anesthesia and modified Seldinger technique, a 6-St Lucian sheath was introduced in the right radial artery . Subsequently, selective coronary angiography was performed using a 5-St Lucian 3.5 bend Seb catheter. Multiple views of the coronary artery including hemiaxial views were obtained. The 5 [place] Lucian pigtail catheter was used to cross the aortic valve and LVEDP was calculated. PCI: After removing the catheters a 6 [place]ian [place] 0.75 guiding catheter was introduced and the system and the RCA ostium was cannulated. Subsequently a 0.014 BMW J- wire was positioned in the PLV. Attempt to advance a Cluster [employer] eye IVUS catheter through the lesion was not successful, the catheter was removed and a 3.0 x 12 mm NC trek balloon was advanced and 2 inflations at 10 diego were done subsequently the IVUS catheter was advanced and imaging revealed diffuse plaquing with calcified lesions and a distal diameter measuring 3.5 to 4.0 mm. After removing the catheter a 3.5 x 18 mm Xience titi point stent was deployed at 16 diego. Repeat IVUS imaging was performed and subsequently another 3.5 x 18 mm Xience titi point was deployed proximal to the first 1 at 16 diego. After removing the balloon a 4.0 x 15 mm NC trek balloon was advanced and both stents were postdilated at 10 diego. After removing the balloon a 4.0 x 23 mm Xience titi point was deployed proximal to the first 1 at 16 diego. Postdilatation using the 4.0 x 15 mm NC trek balloon was performed. Afterward the balloon and the wire where removed and images were obtained. Following that, catheter and sheath were removed. Hemostasis was obtained with deployment of vascular band . There was no immediate complication. Patient was returned to room in stable condition. Of note, the patient received a total of 8000 units of intravenous heparin as well as intra-arterial verapamil. She received an oral loading dose of clopidogrel. Her ACT was followed. She had EKG changes and chest discomfort that resolved at the end of the procedure. Findings: Fluoroscopy: Calcifications of the coronary arteries was noted. Left main: This is a large size vessel, bifurcating into LAD and left circumflex, the left main has no evidence of high-grade stenosis LAD: This is a large size vessel, reaching to the apex with a wraparound apex segment giving rise to a moderately sized diagonal branch. The mid LAD has intimal disease of 20 to 30% the takeoff of the diagonal branch has a 50 to 60% plaque the rest of the vessel has no high-grade stenosis Left circumflex: This is a nondominant vessel giving rise to 2 obtuse marginal branch, the first 1 is large in caliber. Left circumflex has mild intimal disease of 20 to 30% with no high-grade stenosis RCA: This is a large dominant vessel, bifurcating distally to PDA and PLV. Diffusely disease in the mid and distal segment with an area of stenosis of about 90% distally and a plaque prior to the bifurcation up to 60 to 70% as well as at the takeoff of the acute marginal of 50 to 60%. The rest of the vessel has no high-grade stenosis Left Ventriculogram: Not performed Hemodynamics: There was no gradient across the aortic valve, LVEDP was 18-20 mmHg Conclusion: 1. Calcified coronary arteries 2. Severe stenosis in the mid distal RCA 3. Mild to moderate disease in the LAD and left circumflex 4. Successful stenting of the mid and distal RCA with reduction of stenosis from 90% to less than 5% with adjunctive IVUS imaging with MIQUEL-3 flow Recommendations: The patient will continue on aspirin and clopidogrel without any interruption for 6 months in addition to aggressive coronary risks modification attempting to maintain LDL below 70 mg/dL. The findings and the recommendations were discussed with the patient and the family and they were in full understanding and agreement. Duration of sedation is 63 minutes.
[2023-07-18 14:02] VITALS: BP 147/70; PULSE 86
[2023-07-18] MEDS ORDERED: NORTRIPTYLINE 10 MG CAP PO SCH (21:00)
[2023-07-19] MEDS ORDERED: CLOPIDOGREL 75 MG TAB PO SCH (09:00)
[2023-07-19] MEDS ORDERED: ATORVASTATIN 40 MG TAB PO SCH (09:00)
[2023-07-19] MEDS ORDERED: LOSARTAN 50 MG TAB PO SCH (09:00)
[2023-07-19] MEDS ORDERED: ASPIRIN 81 MG PO SCH (09:00)
== END 2023-07-18 13:15 | disposition home or self-care (01) ==
LOC: CATHCVL 06:39 → 6NMEDSUR 09:37 → CATHCVL 09:37
PROVIDERS: ATTEND Internal Medicine Interventional Cardiology
DX: I25.10 Atherosclerotic heart disease of native coronary artery without angina pectoris (principal); I10 Essential (primary) hypertension; E78.5 Hyperlipidemia, unspecified; Z95.5 Presence of coronary angioplasty implant and graft; Z87.891 Personal history of nicotine dependence; Z79.899 Other long term (current) drug therapy
CPT/HCPCS: 92978; 93458; C9600; C1769 ×3; C1887; C1894; C1753; C1874 ×2; C1725 ×2; J2250; J2001; J3010; J1644; Q9967; J2919

== ENCOUNTER → 2023-10-15 | Outpatient (CLI) | payer MEDICARE ==
[2023-10-15 18:38] LABS: ALT 36 U/L (8-44); AST 49 U/L (13-35); LDL Cholesterol,Calculated 48.7 mg/dL (0.0-131.0); VLDL Calculation 9.42 mg/dL (5.00-40.00)
== END | disposition home or self-care (01) ==
LOC: LABWHC1 09:37
PROVIDERS: ATTEND Internal Medicine Interventional Cardiology
DX: E78.2 Mixed hyperlipidemia (principal)
CPT/HCPCS: 36415; 80061; 84450; 84460

== ENCOUNTER → 2024-05-12 | Outpatient (CLI) | payer MEDICARE ==
--- NOTE | 2024-05-12 14:55 | MM ---
Reason for Exam: Screening (asymptomatic). Last mammogram was performed 1 year(s) and 1 month(s) ago. Patient History: Menarche at age 18. First Full-Term at age 20. Postmenopausal. Patient has history of breast feeding. Estrogen for 15 years, 1 month, from age 67 until age 82. Patient used Hormonal Contraceptives for 20 years. Risk Values: Vera 5 year model risk: 1.1%. NCI Lifetime model risk: 1.5%. Prior Study Comparison: 11/21/2020 Bilateral Screening Mammogram, [facility]. 02/13/2022 Bilateral MG 3D screening mammo w/cad, [facility]. 04/08/2023 Bilateral MG 3D screening mammo w/cad, [facility]. Tissue Density: The breasts are heterogeneously dense, which may obscure small masses. Findings: Analyzed By CAD. There is no suspicious group of microcalcifications or new suspicious mass in either breast. Benign-appearing calcifications. Stable chronic nodular tissue along the outer margin the right breast compared to multiple prior exams. Overall Assessment: Benign, BI-RAD 2 Management: Screening Mammogram of both breasts in 1 year. . Patient should continue monthly self-breast exams. A clinical breast exam by your physician is recommended on an annual basis. This exam should not preclude additional follow-up of suspicious palpable abnormalities. Note on Vera scores and lifetime risk: 1. A Vera score greater than 3% is considered moderate risk. If this is the case, consider specialist referral to assess eligibility for a risk reducing agent. 2. If overall lifetime risk for the development of breast cancer is 20% or higher, the patient may qualify for future screening with alternating mammogram and breast MRI. [facility], , 05/12/2024 2:52 PM. Electronically signed and approved by: Willy Johns M.D. Radiologis
--- NOTE | 2024-05-17 18:10 | BD ---
EXAMINATION TYPE: Axial Bone Density DATE OF EXAM: 05/12/2024 CLINICAL HISTORY: 83 years old Female. ICD-10 CODE: M85.851 Osteopenia of right hip , Additional Hi story: Height: 4 ft 9in Weight: 107 FRAX RISK QUESTIONS: Alcohol (3 or more units per day): no Family History (Parent hip fracture): yes Glucocorticoids (More than 3mos): no (Ex: prednisone, prednisolone, methylprednisolone, dexamethasone, and hydrocortisone). History of Fracture in Adulthood: no Secondary Osteoporosis: 1. Type 1 Diabetes: no 2. Hyperthyroidism: no 3. Menopause before 45: no 4. Malnutrition: no 5. Chronic liver disease: no Rheumatoid Arthritis: no Current Tobacco Use: no RISK FACTORS HISTORY OF: Surgery to Spine/Hip(right/left)/Wrist (right/left): bilateral wrist surgeries MEDICATIONS: Thyroid Medications: yes / levothyroxine How Lon years EXAM MEASUREMENTS: Bone mineral densitometry was performed using the [employer]. Bone mineral density as measured about the Lumbar spine is: ----- L1-L4(G/cm2): 1.110 T Score Values are as follows: ----- L1: -0.7 ----- L2: 0.2 ----- L3: -1.1 ----- L4: -0.7 ----- L1-L4: -0.6 Z Score Values are as follows: ----- L1: 1.7 ----- L2: 2.6 ----- L3: 1.3 ----- L4: 1.7 ----- L1-L4: 1.8 Bone mineral density has: increased 3.1 % since study of: 10.05.2022 Bone mineral density about the R hip (g/cm2): 0.738 Bone mineral density about the L hip (g/cm2): 0.768 T Score values are as follows: -----R Neck: -2.1 -----L Neck: -1.9 -----R Total: -2.1 -----L Total: -1.9 Z Score values are as follows: -----R Neck: 0.5 -----L Neck: 0.6 -----R Total: 0.3 -----L Total: 0.6 Bone mineral density has: decreased -6.2 % since study of: 8.18.2022 FRAX%s: The graph provided illustrates a 30.0% chance for a major osteoporotic fx and a 20.3% chance for the hips probability for fx in 10 years time. IMPRESSION: Osteopenia (T Score between -2.5 and -1). There is slightly increased risk of fracture and the patient may be considered for treatment. Re-Screen 2-5 years. NOTE: T-SCORE=SD OF THE YOUNG ADULT MEAN. [facility], , 05/17/2024 6:07 PM
== END | disposition home or self-care (01) ==
LOC: RADMAMWWP 14:19
PROVIDERS: ATTEND Internal Medicine
DX: Z12.31 Encounter for screening mammogram for malignant neoplasm of breast (principal); M85.89 Other specified disorders of bone density and structure, multiple sites; R92.333 Mammographic heterogeneous density, bilateral breasts; R92.1 Mammographic calcification found on diagnostic imaging of breast; Z78.0 Asymptomatic menopausal state; Z92.0 Personal history of contraception
CPT/HCPCS: 77063; 77067; 77080